=== PATIENT | female | born 1940 | race African-American/Black ===

== ENCOUNTER 2023-07-25 17:53 | Emergency (ER) | payer MEDICARE, OTHER ==
[~2023-07-25] VITALS: Ht 160 cm; Wt 79.4 kg
[2023-07-25 17:56] VITALS: BP 162/84; PULSE 82; RESP 16; TEMP 97.9; O2SAT 97
[2023-07-25 18:47] LABS: BASOPHILS % (AUTO) 1.2 % (0.0-2.0); EOSINOPHILS # (AUTO) 0.1 K/uL (0-0.4); EOSINOPHILS % (AUTO) 3.5 % (0.0-4.0); HEMOGLOBIN 12.2 g/dL (12.0-16.0); LYMPHOCYTES # (AUTO) 0.8 K/uL (2.5-16.5); LYMPHOCYTES % (AUTO) 26.8 % (20.5-51.1); MEAN CORPUSCULAR HEMOGLOBIN 30 pg (27-31); MEAN CORPUSCULAR HGB CONC 33 g/dL (33-37); MEAN CORPUSCULAR VOLUME 89.9 fL (80-94); MONOCYTES # (AUTO) 0.4 K/uL (0.8-1.0); MONOCYTES % (AUTO) 11.8 % (1.7-9.3); NEUTROPHILS # (AUTO) 1.8 K/uL (1.8-7.7); NEUTROPHILS % (AUTO) 56.7 % (42.2-75.2); PLATELET COUNT (AUTO) 291 K/uL (140-450); RED BLOOD CELL COUNT(AUTO) 4.12 MIL/uL (4.20-5.40); RED CELL DISTRIBUTION WIDTH 14.4 % (11.6-13.7); WHITE BLOOD COUNT (AUTO) 3.1 K/uL (4.8-10.8)
[2023-07-25 18:56] LABS: ANION GAP 6.7 (8-16); CALCIUM 9.1 mg/dL (8.5-10.1); CARBON DIOXIDE 32.9 mmol/L (21-32); CHLORIDE 98 mmol/L (98-107); CREATININE 0.6 mg/dL (0.6-1.3); GLUCOSE 88 mg/dL (74-106); POTASSIUM 3.6 mmol/L (3.5-5.1); SODIUM SERUM 134 mmol/L (136-145); UREA NITROGEN, BLOOD 10 mg/dL (7-18)
[2023-07-25] MEDS: POLYETHYLENE GLYCOL 17 GM/PKT PO ONE (19:08)
[2023-07-25 19:16] VITALS: O2SAT 99
[2023-07-25 19:18] LABS: ALBUMIN 3.2 g/dL (3.4-5.0); TOTAL BILIRUBIN 0.1 mg/dL (0.0-1.0); TOTAL PROTEIN, SERUM 8.2 g/dL (6.4-8.2)
[2023-07-25 19:28] LABS: BILIRUBIN,DIRECT 0.1 mg/dL (0.0-0.3)
[2023-07-25] MEDS: MINERAL OIL 135 ML ENEM RC ONE (20:43)
[2023-07-25 21:23] LABS: APPEARANCE,URINE CLEAR (CLEAR); BILIRUBIN,URINE NEGATIVE (NEGATIVE); BLOOD, URINE NEGATIVE (NEGATIVE); COLOR,URINE YELLOW (YELLOW); LEUKOCYTE ESTERASE ,URINE NEGATIVE (NEGATIVE); NITRITE, URINE NEGATIVE (NEGATIVE); PROTEIN,URINE NEGATIVE (NEGATIVE); UGLUCOSE NEGATIVE (NEGATIVE); UROBILINOGEN,URINE 0.2 EU/dL (0.2 - 1)
[2023-07-25] MEDS ORDERED: DOCU-299 PO (21:31)
[2023-07-25] MEDS ORDERED: MIRABULK PO (21:31)
[2023-07-26] MEDS ORDERED: GABAPENTIN 300 MG CAP PO ONE (00:10)
[2023-07-26] MEDS ORDERED: KETOROLAC 30 MG/ML VIAL IM ONE (00:15)
[2023-07-26 00:16] VITALS: O2SAT 98
[2023-07-26] MEDS: CELECOXIB 100 MG CAP PO ONE (02:41)
[2023-07-26] MEDS: HYDROXYZINE HYDROCHLORIDE 25 MG TAB PO ONE (02:41)
[2023-07-26 07:16] VITALS: BP 147/66; PULSE 62; RESP 14; TEMP 98.3; O2SAT 99
== END 2023-07-26 07:16 | disposition home or self-care (01) ==
LOC: MED 17:53
DX: K57.90 Diverticulosis of intestine, part unspecified, without perforation or abscess without bleeding (principal); E88.09 Other disorders of plasma-protein metabolism, not elsewhere classified; E87.1 Hypo-osmolality and hyponatremia; N28.1 Cyst of kidney, acquired; R91.1 Solitary pulmonary nodule; K59.00 Constipation, unspecified; I10 Essential (primary) hypertension; Z88.0 Allergy status to penicillin; Z88.2 Allergy status to sulfonamides; Z88.5 Allergy status to narcotic agent; Z88.8 Allergy status to other drugs, medicaments and biological substances; Z79.899 Other long term (current) drug therapy
CPT/HCPCS: 36415; 71045; 74018; 74176; 80048; 80076; 81003; 83690; 84484; 85025; 93005; 99285; Q0092